=== PATIENT | female | born 1970 | race Caucasian/White ===

== ENCOUNTER 2019-04-29 22:51 | Emergency (ER) | payer SELFPAY ==
[~2019-04-29] VITALS: Ht 162.6 cm; Wt 58.0 kg
[2019-04-30 01:24] LABS: CHLORIDE 108 mEq/L (98-107)
[2019-04-30 03:29] VITALS: BP 128/80
== END 2019-04-30 03:29 | disposition home or self-care (01) ==
LOC: ER 23:51
DX: R60.0 Localized edema (principal); E03.9 Hypothyroidism, unspecified; Z88.0 Allergy status to penicillin; Z88.1 Allergy status to other antibiotic agents
CPT/HCPCS: 36415; 83880; 93971; 99284